=== PATIENT | female | born 1940 ===

== ENCOUNTER 2020-01-04 09:35 | Outpatient (CLI) | payer MEDICARE, OTHER, SELFPAY ==
[2020-01-05 14:52] LABS: COVID-19 RT-PCR Result NEGATIVE (Negative)
== END 2020-01-04 09:55 ==
PROVIDERS: PCP Urology; Visit Provider Urology
DX: Z03.818 Encounter for observation for suspected exposure to other biological agents ruled out (principal)
CPT/HCPCS: U0003